=== PATIENT | female | born 1970 | race Caucasian/White ===

== ENCOUNTER 2019-03-05 14:43 | Outpatient (CLI) | payer OTHER ==
--- NOTE | 2019-03-05 15:43 | DEXA Report ---
Reason: HYPERPARATHYROIDISM Procedure Date: 03/05/2019 Accession Number: [id number] / [id number] Procedure: DEX - Dexa Spine and/or Hip CPT Code: FULL RESULT: EXAM: Dexa Spine and/or Hip, Dexa Forearm DATE: 03/05/2019 3:24 PM CLINICAL HISTORY: HYPERPARATHYROIDISM TECHNIQUE: Dual energy x-ray absorptiometry (DXA) was performed on a [employer] System. Regions measured are the AP Spine, femoral neck, and if needed forearm. COMPARISON: None. In accordance with the International Society for Clinical Densitometry (ISCD) guidelines, data from previous exams may be reanalyzed using current recommendations and techniques. This is done to allow a more accurate basis for comparison with the current study. FINDINGS: The data for the lumbar spine is as follows: BMD (g/cm/cm) T-SCORE Z-SCORE REGION L1 1.083 -0.4 -1.3 L2 1.157 -0.4 -1.2 L3 1.198 0.0 -0.9 L4 1.094 -0.9 -1.8 TOTAL 1.132 -0.4 -1.3 NOTE: All evaluable vertebrae are used for classification The data for the hip is as follows: BMD (g/cm/cm) T-SCORE Z-SCORE REGION Neck 0.986 -0.4 -0.4 TOTAL 0.951 -0.5 -0.9 NOTE: The femoral neck or total proximal femur, whichever is lowest, is used for classification. The data for the right forearm is as follows: BMD (g/cm/cm) T-SCORE Z-SCORE REGION Radius 1/3 0.818 -0.7 [-0.7] NOTE: The 33% radius of the nondominant forearm is used for classification. IMPRESSION: THE WHO CLASSIFICATION BASED ON THE INTERNATIONAL REFERENCE STANDARD IS NORMAL. THE FRACTURE RISK IS NOT INCREASED. RECOMMENDATION: Patients with diagnosis of osteoporosis or osteopenia should have regular bone mineral density assessment. For those eligible for Medicare, routine testing is allowed once every 2 years. Testing frequency can be increased for patients who have rapidly progressing disease or for those who are receiving medical therapy to restore bone mass. COMMENT: World Health Organization (WHO) definitions for osteoporosis and osteopenia: NORMAL BMD: T-score at -1.0 or higher, fracture risk is low OSTEOPENIA BMD: T-score between -1.0 and -2.5, fracture risk is increased. OSTEOPOROSIS BMD: T-score at -2.5 or lower, fracture risk is high. National Osteoporosis Foundation recommends: 1. Obtain adequate dietary calcium (at least 1200 mg per day) and vitamin D (400-800 international units per day). 2. Participate, as appropriate, in regular weightbearing and muscle-strengthening exercise. 3. Avoid tobacco use and reduce alcohol and caffeine intake. 4. For more detailed information see the website at www.NOF.org.
--- NOTE | 2019-03-05 15:43 | DEXA Report ---
Reason: HYPERPARATHYROIDISM Procedure Date: 03/05/2019 Accession Number: [id number] / [id number] Procedure: DEX - Dexa Forearm CPT Code: FULL RESULT: EXAM: Dexa Spine and/or Hip, Dexa Forearm DATE: 03/05/2019 3:24 PM CLINICAL HISTORY: HYPERPARATHYROIDISM TECHNIQUE: Dual energy x-ray absorptiometry (DXA) was performed on a [employer] System. Regions measured are the AP Spine, femoral neck, and if needed forearm. COMPARISON: None. In accordance with the International Society for Clinical Densitometry (ISCD) guidelines, data from previous exams may be reanalyzed using current recommendations and techniques. This is done to allow a more accurate basis for comparison with the current study. FINDINGS: The data for the lumbar spine is as follows: BMD (g/cm/cm) T-SCORE Z-SCORE REGION L1 1.083 -0.4 -1.3 L2 1.157 -0.4 -1.2 L3 1.198 0.0 -0.9 L4 1.094 -0.9 -1.8 TOTAL 1.132 -0.4 -1.3 NOTE: All evaluable vertebrae are used for classification The data for the hip is as follows: BMD (g/cm/cm) T-SCORE Z-SCORE REGION Neck 0.986 -0.4 -0.4 TOTAL 0.951 -0.5 -0.9 NOTE: The femoral neck or total proximal femur, whichever is lowest, is used for classification. The data for the right forearm is as follows: BMD (g/cm/cm) T-SCORE Z-SCORE REGION Radius 1/3 0.818 -0.7 [-0.7] NOTE: The 33% radius of the nondominant forearm is used for classification. IMPRESSION: THE WHO CLASSIFICATION BASED ON THE INTERNATIONAL REFERENCE STANDARD IS NORMAL. THE FRACTURE RISK IS NOT INCREASED. RECOMMENDATION: Patients with diagnosis of osteoporosis or osteopenia should have regular bone mineral density assessment. For those eligible for Medicare, routine testing is allowed once every 2 years. Testing frequency can be increased for patients who have rapidly progressing disease or for those who are receiving medical therapy to restore bone mass. COMMENT: World Health Organization (WHO) definitions for osteoporosis and osteopenia: NORMAL BMD: T-score at -1.0 or higher, fracture risk is low OSTEOPENIA BMD: T-score between -1.0 and -2.5, fracture risk is increased. OSTEOPOROSIS BMD: T-score at -2.5 or lower, fracture risk is high. National Osteoporosis Foundation recommends: 1. Obtain adequate dietary calcium (at least 1200 mg per day) and vitamin D (400-800 international units per day). 2. Participate, as appropriate, in regular weightbearing and muscle-strengthening exercise. 3. Avoid tobacco use and reduce alcohol and caffeine intake. 4. For more detailed information see the website at www.NOF.org.
== END 2019-03-05 14:44 | disposition home or self-care (01) ==
LOC: DI 14:43
PROVIDERS: ATTEND Family Medicine
DX: E21.3 Hyperparathyroidism, unspecified (principal)
CPT/HCPCS: 77080; 77081

== ENCOUNTER 2019-06-28 10:11 | Emergency (ER) | payer OTHER ==
[2019-06-28 11:04] LABS: BILIRUBIN,URINE NEGATIVE (NEGATIVE); GLUCOSE, URINE (UA) NEGATIVE (NEGATIVE); KETONES,URINE (UA) NEGATIVE (NEGATIVE); LEUKOCYTE ESTERASE, URINE NEGATIVE (NEGATIVE); NITRITE,URINE NEGATIVE (NEGATIVE); OCCULT BLOOD,URINE NEGATIVE (NEGATIVE); PH,URINE 6.5 PH (5.0-7.5); PROTEIN,URINE NEGATIVE (NEGATIVE); UROBILINOGEN,URINE 0.2 (NORMAL) E.U./dL (NORMAL)
[2019-06-28 11:09] LABS: BASOPHILS % (AUTO) 0.5 %; EOSINOPHILS # (AUTO) 0.1 10^3/uL (0.0-0.7); EOSINOPHILS % (AUTO) 1.1 %; HGB - HEMOGLOBIN 12.4 g/dL (12.0-16.0); LYMPHOCYTES # (AUTO) 1.2 10^3/uL (1.5-3.5); LYMPHOCYTES % (AUTO) 18.7 %; MEAN CORPUSCULAR HEMOGLOBIN 29.5 pg (27.0-31.0); MEAN CORPUSCULAR HGB CONC 34.3 g/dL (32.0-36.0); MEAN PLATELET VOLUME 11.7 fL (7.9-10.8); MONOCYTES # (AUTO) 0.4 10^3/uL (0.0-1.0); NEUTROPHILS # (AUTO) 4.6 10^3/uL (1.5-6.6); NEUTROPHILS % (AUTO) 72.4 %; PLT - PLATELET COUNT 176 10^3/uL (130-450); RED CELL DISTRIBUTION WIDTH 12.4 % (12.0-15.0); WHITE BLOOD COUNT 6.3 x10^3/uL (4.8-10.8)
[2019-06-28 11:10] LABS: CLARITY,URINE CLEAR (CLEAR)
[2019-06-28 11:17] LABS: ALBUMIN 4.2 g/dL (3.2-5.5); ALBUMIN/GLOBULIN RATIO 1.6 (1.0-2.2); BILIRUBIN,TOTAL 0.5 mg/dL (0.2-1.0); CALCIUM 11.8 mg/dL (8.5-10.3); CREATININE 0.9 mg/dL (0.4-1.0); TOTAL PROTEIN 6.9 g/dL (6.7-8.2)
[2019-06-28] MEDS ORDERED: SODIUM CHLORIDE 0.9% 1,000 ML IV ONE (11:41)
[2019-06-28] MEDS ORDERED: LIDOCAINE VISCOUS 2% 15 ML UDC MM STA (11:41)
[2019-06-28] MEDS ORDERED: MAG HYDROX/AL HYDROX/SIMETH 30 ML UDC PO STA (11:41)
[2019-06-28] MEDS ORDERED: LORazepam 0.5 MG TABLET PO STA (11:42)
--- NOTE | 2019-06-28 11:42 | ED Physician Documentation ---
PD HPI CHEST PAIN - Stated complaint Stated Complaint: CHEST PX - Chief complaint Chief Complaint: General - History obtained from History obtained from: Patient, Family - History of Present Illness Timing - onset: Today Timing - onset during: Rest Quality: Dull ("A weird sensation.") Location: Substernal Associated symptoms: Shortness of air, Nausea, Vomiting Similar symptoms before: Diagnosis (Reports history of similar symptoms about one year ago, diagnosed as anxiety attack.) - Additional information Additional information: The patient is a 49-year-old female with a history of hypercalcemia and suspected hyperparathyroidism, who presents with substernal chest discomfort that she describes as "a weird sensation." It began after drinking coffee this morning. She reports associated nausea with 3 episodes of vomiting, and ass ociated shortness of breath. She denies cough or fever. She reports being under significant stress recently. She reports a history of similar episode that occurred about one year ago and was diagnosed as anxiety attack. She was recently evaluated by an software development advisor, and had a calcium level elevated at 12.3, and a parathyroid hormone level elevated at 88. Review of Systems Constitutional: reports: Fatigue. denies: Fever Eyes: denies: Irritation Ears: denies: Tinnitus/ringing Nose: denies: Congestion Throat: denies: Sore throat Cardiac: reports: Chest pain / pressure Respiratory: reports: Dyspnea. denies: Cough GI: reports: Nausea, Vomiting. denies: Abdominal Pain : denies: Dysuria Skin: denies: Rash Musculoskeletal: reports: Joint pain (Generalized arthralgias.). 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 - Present Medications Home Medications: Ambulatory Orders Medication Instructions Recorded Confirmed LORazepam [Lorazepam] 0.5 mg PO BID PRN #14 tablet 06/28/19 Lisinopril 20 mg PO DAILY 06/28/19 06/28/19 Ondansetron Odt [Zofran] 4 mg TL Q6H PRN #10 tablet 06/28/19 - Allergies Allergies/Adverse Reactions: Allergies Allergy/AdvReac Type Severity Reaction Status Date / Time No Known Drug Allergies Allergy Verified 06/28/19 10:47 - Social History Does the pt smoke?: Yes Smoking Status: Current every day smoker Does the pt drink ETOH?: No Substance Use and Type: Marijuana PD ED PE NORMAL - Vitals Vital signs reviewed: Yes (systolic hypertension.) - General General: Alert and oriented X 3, Well developed/nourished, Other (Tearful and anxious appearing.) - HEENT HEENT: Atraumatic, EOMI, Moist mucous membranes, Pharynx benign - Neck Neck: No adenopathy, No JVD - Cardiac Cardiac: RRR - Respiratory Respiratory: No respiratory distress, Clear bilaterally - Abdomen Abdomen: Soft, Non tender - Back Back: No CVA TTP - Derm Derm: No rash - Extremities Extremities: No edema, No calf tenderness / cord - Neuro Neuro: Alert and oriented X 3, No motor deficit, No sensory deficit Results - Vitals Vitals: Vital Signs - 24 hr 06/28/19 06/28/19 12:00 13:09 Heart Rate 57 L 46 L Respiratory 16 14 Rate Blood Pressure 158/88 H 177/99 H O2 Saturation 96 98 Oxygen O2 Source Room air - EKG (time done) 10:19 Rate: Rate (enter#) (50) Rhythm: NSR [place]: Normal Intervals: Normal [place] QRS: LVH Ischemia: Normal ST segments Computer interpretation: Agree with computer - Labs Labs: Laboratory Tests 06/28/19 06/28/19 06/28/19 10:35 10:35 10:35 WBC 6.3 RBC 4.20 Hgb 12.4 Hct 36.1 L MCV 86.0 MCH 29.5 MCHC 34.3 RDW 12.4 Plt Count 176 MPV 11.7 H Neut # (Auto) 4.6 Lymph # (Auto) 1.2 L [place] # (Auto) 0.4 Eos # (Auto) 0.1 Baso # (Auto) 0.0 Absolute Nucleated RBC 0.00 Nucleated RBC % 0.0 Sodium 138 Potassium 3.6 Chloride 105 Carbon Dioxide 23 Anion Gap 10.0 BUN 23 H Creatinine 0.9 Estimated GFR (MDRD) 67 L Glucose 115 H Calcium 11.8 H Total Bilirubin 0.5 AST 20 ALT 14 Alkaline Phosphatase 66 Troponin I High Sens 4.1 Total Protein 6.9 Albumin 4.2 Globulin 2.7 Albumin/Globulin Ratio 1.6 Lipase 43 Urine Color Urine Clarity Urine pH Ur Specific [place] Urine Protein Urine Glucose (UA) Urine Ketones Urine Occult Blood Urine Nitrite Urine Bilirubin Urine Urobilinogen Ur Leukocyte Esterase Ur Microscopic Review Urine Culture Comments 06/28/19 10:50 WBC RBC Hgb Hct MCV MCH MCHC RDW Plt Count MPV Neut # (Auto) Lymph # (Auto) [place] # (Auto) Eos # (Auto) Baso # (Auto) Absolute Nucleated RBC Nucleated RBC % Sodium Potassium Chloride Carbon Dioxide Anion Gap BUN Creatinine Estimated GFR (MDRD) Glucose Calcium Total Bilirubin AST ALT Alkaline Phosphatase Troponin I High Sens Total Protein Albumin Globulin Albumin/Globulin Ratio Lipase Urine Color YELLOW Urine Clarity CLEAR Urine pH 6.5 Ur Specific [place] <=1.005 Urine Protein NEGATIVE Urine Glucose (UA) NEGATIVE Urine Ketones NEGATIVE Urine Occult Blood NEGATIVE Urine Nitrite NEGATIVE Urine Bilirubin NEGATIVE Urine Urobilinogen 0.2 (NORMAL) Ur Leukocyte Esterase NEGATIVE Ur Microscopic Review NOT INDICATED Urine Culture Comments NOT INDICATED - Rads (name of study) CXR Radiology: Prelim report reviewed, EMP read contemporaneously, See rad report (Normal single view chest.) PD MEDICAL DECISION MAKING - ED course Complexity details: reviewed results, re-evaluated patient, considered differential, d/w patient, d/w family ED course: the patient's presentation is most consistent with gastroesophageal reflux and anxiety reaction. I doubt cardiac ischemia, and her EKG and troponin are normal. Chest x-ray reveals no evidence of acute pulmonary pathology. chemistry panel reveals an elevated BUN/creatinine ratio of 23 and 0.9. Her calcium level is elevated at 11.8. Treatment in the emergency department included administration of normal saline 1 L IV, GI cocktail and lorazepam 0.5 mg orally. Her symptoms resolved with the above treatment. She is being discharged with prescription for Zofran and for lorazepam. I discussed with her and her the diagnosis, symptomatic treatment and outpatient follow-up, as well as potentially worrisome signs or symptoms that should prompt reevaluation in the emergency department. Departure - Departure Disposition: 01 Home, Self Care Clinical Impression: Hypercalcemia, Anxiety reaction GERD (gastroesophageal reflux disease) Qualifiers: Esophagitis presence: esophagitis presence not specified Qualified Code(s): K21.9 - Gastro-esophageal reflux disease without esophagitis Condition: Stable Instructions: ED Stress React, ED GERD Follow-Up: VIET HILL [Primary Care Provider] - Prescriptions: LORazepam [Lorazepam] 0.5 mg PO BID PRN #14 tablet PRN Reason: Anxiety Ondansetron Odt [Zofran] 4 mg TL Q6H PRN #10 tablet PRN Reason: Nausea / Vomiting Comments: Try drinking liquid antacid, such as Maalox or Mylanta if you develop substernal discomfort. Take Zofran as prescribed if needed for nausea. You can use lorazepam as prescribed if needed for recurrent anxiety. Follow-up with your primary physician within 1 to 2 weeks if possible, and with your software development advisor as planned. Return to the emergency department if you develop increasing chest pain, shortness of breath, persistent vomiting, or otherwise worsening symptoms. Discharge Date/Time: 06/28/19 13:09
--- NOTE | 2019-06-28 11:55 | XRAY Report ---
Reason: chest pain Procedure Date: 06/28/2019 Accession Number: [id number] / [id number] Procedure: XR - Chest 1 View X-Ray CPT Code: 06896 FULL RESULT: EXAM: CHEST RADIOGRAPHY EXAM DATE: 06/28/2019 11:21 AM. CLINICAL HISTORY: Chest pain. COMPARISON: None. TECHNIQUE: 1 view. FINDINGS: Lungs/Pleura: No focal opacities evident. No pleural effusion. No pneumothorax. Mediastinum: Within exam limitations, the cardiomediastinal contour is normal. Other: None. IMPRESSION: Normal single view chest. RADIA
[2019-06-28 13:10] VITALS: BP 177/99
== END 2019-06-28 13:09 | disposition home or self-care (01) ==
LOC: ED 10:11
DX: K21.9 Gastro-esophageal reflux disease without esophagitis (principal); F41.1 Generalized anxiety disorder; E83.52 Hypercalcemia; F17.200 Nicotine dependence, unspecified, uncomplicated
CPT/HCPCS: 36415; 71045; 80053; 81003; 83690; 84484; 85025; 93005; 96360; 99284; A9270; 81001; 87086

== ENCOUNTER 2019-09-21 11:44 | Emergency (ER) | payer OTHER ==
--- NOTE | 2019-09-21 12:41 | ED Physician Documentation ---
History of Present Illness - Stated complaint Stated Complaint: ANXIETY - Chief complaint Chief Complaint: General - History obtained from History obtained from: Patient - History of Present Illness Timing: Today (She was watching TV at home around 11 AM and developed substernal chest tightness, tingling all over. She had some mild back pain briefly. She vomited twice. She is had similar episodes in the past that were attributed to anxiety. She was on lorazepam for a time it was helpful. No recent travel. No history of DVT or PE. No leg swelling. No hemoptysis or estrogen use. She does have a history of hyperparathyroidism with hypercalcemia. She is seeing a surgeon next month about that.) Review of Systems Constitutional: denies: Fever, Chills, Fatigue Cardiac: denies: Palpitations, Pedal edema, Calf pain Respiratory: reports: Dyspnea. denies: Cough GI: reports: Vomiting. 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 - Present Medications Home Medications: Ambulatory Orders Medication Instructions Recorded Confirmed Blood Pressure Med 09/21/19 Lorazepam [Ativan] 1 mg PO TID PRN #15 tablet 09/21/19 Ondansetron Odt [Zofran] 4 mg TL Q6H PRN #10 tablet 09/21/19 - Allergies Allergies/Adverse Reactions: Allergies Allergy/AdvReac Type Severity Reaction Status Date / Time No Known Drug Allergies Allergy Verified 09/21/19 12:01 - Social History Does the pt smoke?: Yes Smoking Status: Current every day smoker Does the pt drink ETOH?: No Does the pt have substance abuse?: Yes Substance Use and Type: Marijuana - Immunizations Immunizations: TDAP >10years/unknown PD ED PE NORMAL - Vitals Vital signs reviewed: Yes - General General: Alert and oriented X 3, No acute distress - HEENT HEENT: PERRL, EOMI - Neck Neck: Supple, no meningeal sign, No bony TTP, No bruit - Cardiac Cardiac: RRR, No murmur - Respiratory Respiratory: No respiratory distress, Clear bilaterally - Abdomen Abdomen: Non tender - Back Back: No CVA TTP - Derm Derm: Normal color, Warm and dry - Extremities Extremities: No edema, No calf tenderness / cord - Neuro Neuro: Alert and oriented X 3, No motor deficit, No sensory deficit, Normal speech Results - Vitals Vitals: Vital Signs - 24 hr 09/21/19 09/21/19 11:59 13:25 Temperature 36.8 C Heart Rate 74 50 L Respiratory 18 18 Rate Blood Pressure 174/88 H 151/77 H O2 Saturation 99 97 Oxygen O2 Source Room air - EKG (time done) 1210 Rate: Rate (enter#) (54) Rhythm: NSR [place]: Normal Intervals: Normal [place] QRS: Normal Ischemia: Normal ST segments Computer interpretation: Agree with computer - Labs Labs: Laboratory Tests 09/21/19 09/21/19 09/21/19 12:35 12:35 12:35 WBC 9.2 RBC 4.13 L Hgb 12.0 Hct 36.5 L MCV 88.4 MCH 29.1 MCHC 32.9 RDW 12.1 Plt Count 173 MPV 11.0 H Neut # (Auto) 7.5 H Lymph # (Auto) 1.2 L [place] # (Auto) 0.5 Eos # (Auto) 0.0 Baso # (Auto) 0.0 Absolute Nucleated RBC 0.00 Nucleated RBC % 0.0 Sodium 139 Potassium 3.8 Chloride 106 Carbon Dioxide 26 Anion Gap 7.0 BUN 18 Creatinine 0.9 Estimated GFR (MDRD) 67 L Glucose 109 H Calcium 11.7 H Total Bilirubin 0.5 AST 20 ALT 14 Alkaline Phosphatase 64 Troponin I High Sens < 2.3 L Total Protein 6.8 Albumin 4.2 Globulin 2.6 Albumin/Globulin Ratio 1.6 Lipase 36 PD MEDICAL DECISION MAKING - ED course ED course: 49-year-old with what seems like anxiety, heart score 2 for obesity and smoking. Had a negative stress test within the last 6 months. Departure - Departure Disposition: 01 Home, Self Care Clinical Impression: Anxiety reaction Chest pain Qualifiers: Chest pain type: unspecified Qualified Code(s): R07.9 - Chest pain, unspecified Condition: Good Record reviewed to determine appropriate education?: Yes Instructions: ED Chest Pain Atypical Unkn Cause Prescriptions: Lorazepam [Ativan] 1 mg PO TID PRN #15 tablet PRN Reason: Anxiety Ondansetron Odt [Zofran] 4 mg TL Q6H PRN #10 tablet PRN Reason: Nausea / Vomiting Comments: Call your doctor to arrange a follow-up appointment, make the next available appointment. In the interim, return anytime if worse or if new symptoms develop. Continue current blood pressure med, recheck blood pressure with your physician in a week or so.
[2019-09-21] MEDS ORDERED: LORazepam 1 MG TABLET PO STA (12:51)
[2019-09-21 12:52] LABS: BASOPHILS % (AUTO) 0.3 %; EOSINOPHILS % (AUTO) 0.3 %; LYMPHOCYTES # (AUTO) 1.2 10^3/uL (1.5-3.5); LYMPHOCYTES % (AUTO) 12.6 %; MEAN CORPUSCULAR HEMOGLOBIN 29.1 pg (27.0-31.0); MEAN CORPUSCULAR HGB CONC 32.9 g/dL (32.0-36.0); MEAN CORPUSCULAR VOLUME 88.4 fL (81.0-99.0); MONOCYTES # (AUTO) 0.5 10^3/uL (0.0-1.0); MONOCYTES % (AUTO) 5.4 %; NEUTROPHILS # (AUTO) 7.5 10^3/uL (1.5-6.6); NEUTROPHILS % (AUTO) 81.1 %; PLT - PLATELET COUNT 173 10^3/uL (130-450); RED BLOOD COUNT 4.13 10^6/uL (4.20-5.40); RED CELL DISTRIBUTION WIDTH 12.1 % (12.0-15.0); WHITE BLOOD COUNT 9.2 x10^3/uL (4.8-10.8)
[2019-09-21 13:05] LABS: ALBUMIN 4.2 g/dL (3.2-5.5); ALBUMIN/GLOBULIN RATIO 1.6 (1.0-2.2); BILIRUBIN,TOTAL 0.5 mg/dL (0.2-1.0); CALCIUM 11.7 mg/dL (8.5-10.3); CREATININE 0.9 mg/dL (0.4-1.0); TOTAL PROTEIN 6.8 g/dL (6.7-8.2)
[2019-09-21] MEDS ORDERED: LIDOCAINE VISCOUS 2% 15 ML UDC MM STA (13:30)
[2019-09-21] MEDS ORDERED: MAG HYDROX/AL HYDROX/SIMETH 30 ML UDC PO STA (13:30)
[2019-09-21 13:43] VITALS: BP 162/76
== END 2019-09-21 13:43 | disposition home or self-care (01) ==
LOC: ED 11:44
DX: R07.89 Other chest pain (principal); R11.10 Vomiting, unspecified; F41.9 Anxiety disorder, unspecified; E21.3 Hyperparathyroidism, unspecified; E66.9 Obesity, unspecified; Z68.37 Body mass index [BMI] 37.0-37.9, adult; F17.200 Nicotine dependence, unspecified, uncomplicated
CPT/HCPCS: 36415; 80053; 83690; 84484; 85025; 93005; 99283; 99284; A9270; J8499

== ENCOUNTER 2019-12-08 18:50 | Emergency (ER) | payer OTHER ==
[2019-12-08 19:28] LABS: BASOPHILS % (AUTO) 0.4 %; EOSINOPHILS % (AUTO) 0.5 %; HGB - HEMOGLOBIN 13.1 g/dL (12.0-16.0); LYMPHOCYTES # (AUTO) 2.1 10^3/uL (1.5-3.5); LYMPHOCYTES % (AUTO) 26.3 %; MEAN CORPUSCULAR HEMOGLOBIN 28.9 pg (27.0-31.0); MEAN CORPUSCULAR HGB CONC 33.4 g/dL (32.0-36.0); MEAN CORPUSCULAR VOLUME 86.3 fL (81.0-99.0); MEAN PLATELET VOLUME 10.5 fL (7.9-10.8); MONOCYTES # (AUTO) 0.6 10^3/uL (0.0-1.0); MONOCYTES % (AUTO) 7.9 %; NEUTROPHILS # (AUTO) 5.1 10^3/uL (1.5-6.6); NEUTROPHILS % (AUTO) 64.5 %; PLT - PLATELET COUNT 187 10^3/uL (130-450); RED BLOOD COUNT 4.54 10^6/uL (4.20-5.40); RED CELL DISTRIBUTION WIDTH 12.1 % (12.0-15.0); WHITE BLOOD COUNT 7.8 x10^3/uL (4.8-10.8)
[2019-12-08] MEDS ORDERED: LORazepam 1 MG TABLET PO STA (19:36)
--- NOTE | 2019-12-08 19:38 | ED Physician Documentation ---
History of Present Illness - Stated complaint Stated Complaint: ANXIETY/SOA/CHEST TIGHT - Chief complaint Chief Complaint: MHE - History obtained from History obtained from: Patient, Family - History of Present Illness Timing: Today Pain level max: 0 Pain level now: 0 Improved by: nothing Worsened by: nothing - Additonal information Additional information: states feels anxious, chest tightness and short of breath. She states that this feels similar to her past anxiety. Patient also has hyperparathyroidism and hypercalcemia. She is currently not on medication for this. She has been referred several times, she is awaiting a surgeon to perform the parathy roidectomy. Patient states that she had to put her dog down last week. 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 - Present Medications Home Medications: Ambulatory Orders Medication Instructions Recorded Confirmed Blood Pressure Med 09/21/19 Lorazepam [Ativan] 1 mg PO TID PRN #15 tablet 09/21/19 Ondansetron Odt [Zofran] 4 mg TL Q6H PRN #10 tablet 09/21/19 Cinacalcet HCl 30 mg PO BID #28 tablet 12/08/19 Lorazepam [Ativan] 1 mg PO Q8HR PRN #10 tablet 12/08/19 - Allergies Allergies/Adverse Reactions: Allergies Allergy/AdvReac Type Severity Reaction Status Date / Time No Known Drug Allergies Allergy Verified 12/08/19 19:04 - Social History Does the pt smoke?: Yes Smoking Status: Current every day smoker Does the pt drink ETOH?: No Does the pt have substance abuse?: Yes - Immunizations Immunizations: TDAP >10years/unknown PD ED PE NORMAL - Vitals Vital signs reviewed: Yes - General General: Alert and oriented X 3, Well developed/nourished, Other (Appears anxious) - HEENT HEENT: PERRL, Moist mucous membranes - Neck Neck: Supple, no meningeal sign - Cardiac Cardiac: RRR, No murmur, Strong equal pulses - Respiratory Respiratory: No respiratory distress, Clear bilaterally - Abdomen Abdomen: Soft, Non tender, Non distended - Derm Derm: Warm and dry - Extremities Extremities: No edema - Neuro Neuro: Alert and oriented X 3 - Psych Psych: Normal mood, Normal affect Results - Vitals Vitals: Vital Signs - 24 hr 12/08/19 12/08/19 19:04 20:39 Temperature 36.6 C Heart Rate 70 57 L Respiratory 17 11 L Rate Blood Pressure 191/102 H 182/98 H O2 Saturation 99 97 Oxygen O2 Source Room air - EKG (time done) 1913 Rate: Rate (enter#) (66) Rhythm: NSR [place]: Normal Intervals: Normal [place] QRS: Normal, LVH Ischemia: Normal ST segments - Labs Labs: Laboratory Tests 12/08/19 12/08/19 12/08/19 19:20 19:20 19:20 WBC 7.8 RBC 4.54 Hgb 13.1 Hct 39.2 MCV 86.3 MCH 28.9 MCHC 33.4 RDW 12.1 Plt Count 187 MPV 10.5 Neut # (Auto) 5.1 Lymph # (Auto) 2.1 [place] # (Auto) 0.6 Eos # (Auto) 0.0 Baso # (Auto) 0.0 Absolute Nucleated RBC 0.00 Nucleated RBC % 0.0 Sodium 138 Potassium 3.4 L Chloride 104 Carbon Dioxide 23 Anion Gap 11.0 BUN 16 Creatinine 0.8 Estimated GFR (MDRD) 76 L Glucose 111 H Calcium 12.0 H* Total Bilirubin 1.0 AST 27 ALT 21 Alkaline Phosphatase 74 Troponin I High Sens 3.5 Total Protein 7.0 Albumin 4.7 Globulin 2.3 Albumin/Globulin Ratio 2.0 Lipase 34 - Rads (name of study) Chest x-ray Radiology: Prelim report reviewed, EMP read contemporaneously, See rad report (No acute abnormality) PD MEDICAL DECISION MAKING - ED course Complexity details: reviewed results, re-evaluated patient, considered differential (No ST elevation PA, no aortic dissection, no PE, no tension pneumothorax, no aortic aneurysm), d/w patient, d/w family ED course: Patient with what appears to be anxiety. Feels better after Ativan. Her calcium levels have continued to climb and her surgery date is not close. We will trial her on Cinacalcet. She was also given a dose of Lasix here. No evidence of acute coronary syndrome. No evidence of pulmonary embolus. We will prescribe Ativan for home as well. Patient and family counseled regarding signs and symptoms for which I believe and urgent re-evaluation would be necessary. Patient with good understanding of and agreement to plan and is comfortable going home at this time This document was made in part using voice recognition software. While efforts are made to proofread this document, sound alike and grammatical errors may occur. Departure - Departure Disposition: Home, Self Care Clinical Impression: Anxiety reaction, Hypercalcemia Chest pain Qualifiers: Chest pain type: unspecified Qualified Code(s): R07.9 - Chest pain, unspecified Condition: Good Instructions: ED Chest Pain Atypical Unkn Cause, ED Panic Attack Follow-Up: VIET HILL [Primary Care Provider] - Within 3 Days Prescriptions: Lorazepam [Ativan] 1 mg PO Q8HR PRN #10 tablet PRN Reason: Anxiety Cinacalcet HCl 30 mg PO BID #28 tablet Comments: Return if you worsen. Follow-up with your doctor for further care. Your ca lcium level was high today, this is likely from your hyperparathyroidism. They may want to consider starting you on a medication such as cinacalcet to help with this until you get your surgery. Discharge Date/Time: 12/08/19 20:39
[2019-12-08 19:44] LABS: ALBUMIN 4.7 g/dL (3.2-5.5); CREATININE 0.8 mg/dL (0.4-1.0)
[2019-12-08] MEDS ORDERED: FUROSEMIDE 20 MG TABLET PO STA (19:52)
--- NOTE | 2019-12-08 20:07 | XRAY Report ---
Reason: Chest Pain Procedure Date: 12/08/2019 Accession Number: [id number] / [id number] Procedure: XR - Chest 1 View X-Ray CPT Code: 84051 Final Report FULL RESULT: EXAM: CHEST RADIOGRAPHY EXAM DATE: 12/08/2019 07:38 PM. CLINICAL HISTORY: Chest pain and shortness of breath. COMPARISON: CHEST 1 VIEW 06/28/2019 11:07 AM. TECHNIQUE: 1 view. FINDINGS: Lungs/Pleura: No focal opacities evident. No pleural effusion. No pneumothorax. Mediastinum: Within exam limitations, the cardiomediastinal contour is normal. Other: No fractures identified. IMPRESSION: Normal single view chest. RADIA
[2019-12-08 20:40] VITALS: BP 182/98
== END 2019-12-08 20:39 | disposition home or self-care (01) ==
LOC: ED 18:50
DX: F41.1 Generalized anxiety disorder (principal); E83.52 Hypercalcemia; R07.9 Chest pain, unspecified; F17.200 Nicotine dependence, unspecified, uncomplicated
CPT/HCPCS: 36415; 71045; 80053; 83690; 84484; 85025; 93005; 99284; A9270; J8499